=== PATIENT | female | born 1995 | race Caucasian/White ===

== ENCOUNTER 2020-07-02 05:55 | Inpatient (IN) ==
[2020-07-02] MEDS ORDERED: Azithromycin 500 MG in 0.9 % Sodium Chloride 250 ML IVPB ONE (05:57)
[2020-07-02] MEDS ORDERED: Famotidine 20 MG/2 ML VIAL IVP PRN (05:57)
[2020-07-02] MEDS ORDERED: Ondansetron 4 MG/2 ML VIAL IVP PRN (05:57)
[2020-07-02] MEDS ORDERED: Naloxone 0.4 MG/ML INJ IVP PRN (05:57)
[2020-07-02] MEDS ORDERED: Lidocaine 1% 20 ML MDV ID PRN (05:57)
[2020-07-02] MEDS ORDERED: Metoclopramide 10 MG/2 ML VIAL IVP PRN (05:57)
[2020-07-02 06:32] LABS: Basophils # 0.1 K/mcL (0.0-0.2); Basophils % 0.8 %; Eosinophils # 0.3 K/mcL (0.0-0.6); Eosinophils % 2.8 %; Hematocrit 40.8 % (35.3-44.9); Hemoglobin 13.2 g/dL (11.5-15.4); Immature Granulocytes % 3.4 % (0-4); Lymphocytes # 1.8 K/mcL (0.6-4.6); Lymphocytes % 14.7 %; Mean Corpuscular HGB Conc 32.4 g/dL (31.6-35.5); Mean Corpuscular Hemoglobin 29.8 pg (28.0-33.3); Mean Corpuscular Volume 92.1 fL (83.0-100.0); Mean Platelet Volume 9.2 fL (9.4-12.4); Monocytes # 0.9 K/mcL (0.0-1.3); Monocytes % 6.9 %; Neutrophils # 8.8 K/mcL (1.6-8.9); Platelet Count 282 K/mcL (140-400); Red Blood Count 4.43 M/mcL (3.82-4.97); Red Cell Distribution Width 12.7 % (11.5-14.5); Segmented Neutrophils % 71.4 %; White Blood Count 12.3 K/mcL (4.3-11.1)
[2020-07-02] MEDS ORDERED: Oxytocin 20 units/ LR 1000 mL 20 UNIT/1,000 ML BAG IVC ONE (06:37)
[2020-07-02] MEDS: Ringers Solution, Lactated 1,000 ML IVC SCH ×3 (06:41→18:28)
[2020-07-02 06:45] LABS: Amphetamine Screen,Urine Negative ng/mL (Cutoff=1000); Barbiturate Screen,Urine Negative ng/mL (Cutoff=200)
[2020-07-02] MEDS ORDERED: Oxytocin 20 units/ LR 1000 mL 20 UNIT/1,000 ML BAG IVC SCH ×2 (06:45→22:44)
[2020-07-02 06:46] LABS: Benzodiazepines Screen,Urine Negative ng/mL (Cutoff=300); Cannabinoid Screen,Urine Negative ng/mL (Cutoff = 50); Cocaine Screen,Urine Negative ng/mL (Cutoff= 300); Opiate Screen,Urine Negative ng/mL (Cutoff=300); Phencyclidine Screen,Urine Negative ng/mL (Cutoff=25)
[2020-07-02] MEDS ORDERED: EPHEDrine 50 MG/ML VIAL IVP PRN (06:59)
[2020-07-02] MEDS ORDERED: Epidural Premix (fent/bupiv) 110 ML EP SCH (07:00)
[2020-07-02] MEDS ORDERED: Methylergonovine 0.2 MG/ML AMPUL IM ONE (18:00)
[2020-07-02] MEDS ORDERED: Rho Immune Globulin 1,500 UNIT SYRINGE IM PRN (22:44)
[2020-07-02] MEDS ORDERED: Lanolin 7 G OINT...G. TP PRN (22:44)
[2020-07-03] MEDS ORDERED: Acetaminophen 325 MG TABLET PO SCH (03:00)
[2020-07-03] MEDS: Ibuprofen 600 MG TABLET PO SCH ×2 (08:25→15:25)
[2020-07-03] MEDS ORDERED: Prenatal Vit/FA 1 EACH TABLET PO SCH (09:00)
[2020-07-03 15:49] VITALS: BP 122/67
== END 2020-07-03 18:01 | disposition home or self-care (01) | DRG 806 ==
LOC: 1NENULAB 05:55 → 1NENUOBS 23:04
PROVIDERS: ADMIT Obstetrics & Gynecology; ATTEND Obstetrics & Gynecology